=== PATIENT | female | born 1980 | race Caucasian/White ===

== ENCOUNTER 2017-01-04 21:56 | Emergency (ER) | payer OTHER ==
[~2017-01-04] VITALS: Ht 167.6 cm; Wt 86.0 kg
[2017-01-04 21:58] VITALS: Ht 167.6 cm; Wt 86.0 kg
[2017-01-04] MEDS ORDERED: ONDANSETRON (ODT) 4 MG TAB ODT STA (22:29)
[2017-01-04] MEDS ORDERED: ACETAMINOPHEN 325 MG TAB PO ONE (22:30)
[2017-01-04 23:34] LABS: ADD SCAN DIFF NO
[2017-01-04 23:36] LABS: BASOPHILS % 0.2 % (0.0-2.0); EOSINOPHILS # 0.1 10^3/ul (0.0-0.5); EOSINOPHILS % 1.2 % (0.0-7.0); HEMOGLOBIN 12.8 g/dl (12.0-16.0); LYMPHOCYTES % 24.2 % (15.0-51.0); MEAN CORPUSCULAR HEMOGLOBIN 29.8 pg (29.0-33.0); MEAN CORPUSCULAR HGB CONC 34.6 g/dl (32.0-37.0); MEAN CORPUSCULAR VOLUME 86.2 fl (82.0-101.0); MEAN PLATELET VOLUME 9.1 fl (7.4-10.4); MONOCYTE # 0.6 10^3/ul (0.3-0.9); MONOCYTES % 7.9 % (0.0-11.0); NEUTROPHIL # 5.3 10^3/ul (1.6-7.5); NEUTROPHILS % 65.9 % (39.0-77.0); PLATELET COUNT 369 10^3/UL (140-415); RED BLOOD COUNT 4.29 10^6/ul (4.20-5.40); RED CELL DISTRIBUTION WIDTH 12.6 % (11.5-14.5); WHITE BLOOD COUNT 8.1 10^3/ul (4.8-10.8)
[2017-01-05 00:01] LABS: ALBUMIN 3.9 g/dl (3.3-4.9); ALBUMIN/GLOBULIN RATIO 0.95; BILIRUBIN,INDIRECT 0.2 mg/dl (0-1.1); BILIRUBIN,TOTAL 0.2 mg/dl (0.2-1.3); CALCIUM 9.5 mg/dl (8.4-10.2); CREATININE 0.6 mg/dl (0.44-1.00); POTASSIUM 3.8 mmol/L (3.5-5.1)
[2017-01-05 00:01] LABS: ADD UMIC YES; URINE BILIRUBIN (Dip) NEGATIVE (NEGATIVE); URINE BLOOD (Dip) NEGATIVE (NEGATIVE); URINE COLOR LT. YELLOW (YELLOW); URINE GLUCOSE (Dip) NEGATIVE (NEGATIVE); URINE KETONES (Dip) NEGATIVE (NEGATIVE); URINE LEUKOCYTE ESTERASE (Dip) 1+ (NEGATIVE); URINE NITRITE (Dip) NEGATIVE (NEGATIVE); URINE TOTAL PROTEIN (Dip) NEGATIVE (NEGATIVE); URINE UROBILINOGEN (Dip) 0.2 E.U./dL (0.1-1.0)
--- NOTE | 2017-01-05 00:07 | RADRPT ---
PROCEDURE: US OB. CLINICAL INDICATION: TECHNIQUE: Transabdominal and transvaginal views of the pelvis are available for review. COMPARISON: There are no similar studies submitted for comparison. FINDINGS: The uterus measures 8.9 x 5.4 cm. There is a a single intrauterine gestation with a crown-rump rohan th measuring 8.8 millimeters, corresponding to a gestational age of 6 weeks 6 days. A yolk sac is no torsten. The heart rate is noted at 128 bpm. The right ovary measures 1.8 x 1.3 x 1.8 cm. The left ovary measures 2.2 x 2.6 x 2.1 cm. Doppler f low is noted to the bilateral ovaries. There is no free fluid. IMPRESSION: Single live intrauterine with an estimated gestational age of 6 weeks 6 days. Continued fo llow-up is recommended. Doppler flow to the bilateral ovaries. RPTAT: HIKT .Adis Rodriguez MD, MD Date Time Electronically viewed and signed by .Adis Rodriguez MD, on 01/05/2017 00:06 .T/
[2017-01-05] MEDS ORDERED: NITR-58 PO (00:30)
[2017-01-05] MEDS ORDERED: ACET325T33 PO (00:30)
--- NOTE | 2017-01-05 00:34 | ERD ---
ER Documentation Chief Complaint Date/Time DATE: 01/05/17 TIME: 00:34 Chief Complaint lower back pain radiating to front x 2 weeks HPI 36-year-old female presents with chief complaint of low back pain that radiates into her left leg and left-sided pelvic pain 2 weeks. Associated symptoms include dysuria. She states that LNMP was 11/09/16, states that menstrual cycles are usually regular. She is history of 2 C-sections in 2001 and 2002. She denies any nausea, vomiting, diarrhea, fever, vaginal discharge, and vaginal bleeding. She currently rates her pain a 7 out of 10 in severity, has not taken any medications for pain. No aggravating or alleviating factors. ROS All systems reviewed and are negative except as per history of present illness. Medications Home Meds Active Scripts Acetaminophen* (Tylenol*) 325 Mg Tablet, 2 TAB PO Q6 Y for PAIN AND OR ELEVATED TEMP, #20 TAB Prov:Nancy Mccall PA-C 01/05/17 Nitrofurantoin Monohyd Macrocr* (Macrobid*) 100 Mg Capsr, 100 MG PO BID for 5 Days, #10 CAP Prov:Nanyc Mccall PA-C 01/05/17 Reported Medications [None] No Conflict Check 08/28/14 Allergies Allergies: Coded Allergies: No Known Allergy (Unverified , 01/04/17) PMhx/Soc History of Surgery: Yes (C SECTIONC) Anesthesia Reaction: No Hx Neurological Disorder: No Hx Respiratory Disorders: No Hx Cardiac Disorders: Yes (htn) Hx Psychiatric Problems: No Hx Miscellaneous Medical Probl: Yes (diabetes, high cholesterol) Hx Alcohol Use: No Hx Substance Use: No Hx Tobacco Use: No Physical Exam Vitals Vital Signs Date Time Temp Pulse Resp B/P Pulse Ox O2 Delivery O2 Flow Rate FiO2 01/05/17 00:53 98.3 62 20 145/62 99 01/04/17 21:58 97.8 83 20 147/62 99 Physical Exam GENERAL: Non-toxic. No apparent signs of distress. LUNGS: Clear to auscultation. No accessory muscle use. No wheezing, no crackles. No signs or symptoms of respiratory distress. HEART: Regular rate and rhythm. No murmurs, clicks, rubs or gallops. ABDOMEN: Soft, nontender and nondistended. Bowel sounds positive. No rebound or guarding. No gross peritoneal signs. No Martinez or McBurney point tenderness. No gross masses. BACK: No midline tenderness, no costovertebral tenderness. EXTREMITIES: No peripheral cyanosis or edema. No focal pain or notable trauma. Full range of motion. Good capillary refill. NEURO: The patient moves all 4 extremities with 5/5 strength. Cranial nerves are grossly intact. Normal mental status for age. Good muscle tone. Positive straight leg raise on left side. SKIN: There is no apparent rash, petechiae, erythema or swelling. Good skin turgor. Result Diagram: 01/04/17232001/04/172320 Results 24 hrs Laboratory Tests Test 01/04/17 23:00 01/04/17 23:21 Urine Color LT. YELLOW Urine Clarity CLEAR Urine pH 7.0 Urine Specific [place] 1.020 Urine Ketones NEGATIVE Urine Nitrite NEGATIVE Urine Bilirubin NEGATIVE Urine Urobilinogen 0.2 E.U./dL Urine Leukocyte Esterase 1+ Urine Microscopic RBC NONE SEEN/HPF Urine Microscopic WBC 10-25/HPF Urine Squamous Epithelial Cells MODERATE Urine Bacteria FEW Urine Hemoglobin NEGATIVE Urine Glucose NEGATIVE% Urine Total Protein NEGATIVE White Blood Count 8.110^3/ul Red Blood Count 4.2910^6/ul Hemoglobin 12.8g/dl Hematocrit 37.0% Mean Corpuscular Volume 86.2fl Mean Corpuscular Hemoglobin 29.8pg Mean Corpuscular Hemoglobin Concent 34.6g/dl Red Cell Distribution Width 12.6% Platelet Count 62738^3/UL Mean Platelet Volume 9.1fl Neutrophils % 65.9% Lymphocytes % 24.2% Monocytes % 7.9% Eosinophils % 1.2% Basophils % 0.2% Nucleated Red Blood Cells % 0.0/100WBC Neutrophils # 5.310^3/ul Lymphocytes # 2.010^3/ul Monocytes # 0.610^3/ul Eosinophils # 0.110^3/ul Basophils # 0.010^3/ul Nucleated Red Blood Cells # 0.010^3/ul Sodium Level 135mmol/L Potassium Level 3.8mmol/L Chloride Level 103mmol/L Carbon Dioxide Level 26mmol/L Anion Gap 10 Blood Urea Nitrogen 16mg/dl Creatinine 0.60mg/dl Glucose Level 133mg/dl Calcium Level 9.5mg/dl Total Bilirubin 0.2mg/dl Direct Bilirubin 0.00mg/dl Indirect Bilirubin 0.2mg/dl Aspartate Amino Transf (AST/SGOT) 13IU/L Alanine Aminotransferase (ALT/SGPT) 26IU/L Alkaline Phosphatase 107IU/L Total Protein 8.0g/dl Albumin 3.9g/dl Globulin 4.10g/dl Albumin/Globulin Ratio 0.95 Current Medications Medications (Trade) Dose Ordered Sig/Mimi Route PRN Reason Start Time Stop Time Status Last Admin Dose Admin Acetaminophen (Tylenol Tab) 650 mg ONCE ONCE PO 01/04/17 22:30 01/04/17 22:31 DC 01/04/17 23:01 Ondansetron HCl (Zofran Odt) 4 mg ONCE STAT ODT 01/04/17 22:29 01/04/17 22:31 DC 01/04/17 23:01 [place] [id number] Radiology Main Line: [phone] DIAGNOSTIC IMAGING REPORT Patient: FLEX LAWRENCE : 1980 Age: 36 Sex: F MR #: [id number] DOS: 01/04/17 2224 Ordering MD: Nancy Mccall PA-C Location: [facility] Room/Bed: PROCEDURE: US OB. CLINICAL INDICATION: TECHNIQUE: Transabdominal and transvaginal views of the pelvis are available for review. COMPARISON: There are no similar studies submitted for comparison. FINDINGS: The uterus measures 8.9 x 5.4 cm. There is a a single intrauterine gestation with a crown-rump length measuring 8.8 millimeters, corresponding to a gestational age of 6 weeks 6 days. A yolk sac is noted. The heart rate is noted at 128 bpm. The right ovary measures 1.8 x 1.3 x 1.8 cm. The left ovary measures 2.2 x 2.6 x 2.1 cm. Doppler flow is noted to the bilateral ovaries. There is no free fluid. IMPRESSION: Single live intrauterine with an estimated gestational age of 6 weeks 6 days. Continued follow-up is recommended. Doppler flow to the bilateral ovaries. RPTAT: HIKT .Adis Rodriguez MD, Date Time Electronically viewed and signed by .Adis Rodriguez MD, on 01/05/2017 00:06 .T/ CC: Nancy Mccall PA-C Procedures/MDM Patient presents with complaint of back pain that radiates into her left leg and left adnexal pain 2 weeks. While taking her history patient notes that LNMP was 11/09/16. Patient states that normally her menstrual cycles are regular, states that she could be . Basic labs, pelvic ultrasound and urine were ordered awaiting results prior to further management. Patient given Tylenol for pain control in the event that she may be . CBC: No leukocytosis, no anemia, no left shift. CMP: No severe electrolyte imbalance, normal kidney function, normal liver function POC : Positive UA: 1+ leukocyte Estrace, no nitrite, 10-25 WBCs. Will treat for UTI since patient is Pelvic ultrasound (interpretation by radiologist): IMPRESSION: Single live intrauterine with an estimated gestational age of 6 weeks 6 days. Continued follow-up is recommended. Doppler flow to the bilateral ovaries. Explained the results of the workup to the patient, and is reassuring that she has no leukocytosis or left shift. In addition the patient had no CVA tenderness on exam and she is afebrile, UA reveals only 1+ leukocyte esterase with 10-25 WBCs and no nitrites, making pyelonephritis unlikely. Back pain radiates into left leg and she has a positive straight leg raise on the left side. I expect the patient that this may be indicated of sciatica. Patient did not know that she was , explained that she is 6 weeks shows intrauterine with heart tones, suggested follow-up with OB /[facility] COLLATOR for care. Suggested use of vitamins. Ovarian torsion is ruled out with Doppler flow to bilateral ovaries seen on ultrasound, patient' s left adnexal pain is likely related to changes. I suggested use of Tylenol for pain. I also wrote a prescription for Macrobid, as patient has 1+ leukocyte Estrace and her UA and reports dysuria. Patient given instructions on and sciatica. Is stable for discharge and outpatient management. Advised to follow-up with PCP or [facility] in 1-2 days. Departure Diagnosis: Primary Impression: Back pain Back pain location: low back pain Chronicity: acute Back pain laterality: left Sciatica presence: with sciatica Sciatica laterality: sciatica of left side Qualified Code: M54.42 - Acute left-sided low back pain with left-sided sciatica Additional Impression: Weeks of gestation: less than 8 weeks Qualified Code: Z3A.01 - Less than 8 weeks gestation of Condition: Good Patient Instructions: , New Dx, Back Pain W/ Sciatica Additional Instructions: Call your primary care doctor TOMORROW for an appointment during the next 1-2 days.See the doctor sooner or return here if your condition worsens before your appointment time. Nancy Mccall PA-C January 05, 2017 00:34
[2017-01-05 00:38] LABS: BACTERIA,URINE FEW; SQUAMOUS EPITHELIAL CELL,UR MODERATE; URINE RBCS NONE SEEN /HPF (0)
[2017-01-05 00:53] VITALS: BP 145/62; PULSE 62; RESP 20; TEMP 98.3
== END 2017-01-05 00:59 | disposition home or self-care (01) ==
LOC: FTE 21:56
DX: M54.42 Lumbago with sciatica, left side (principal); I10 Essential (primary) hypertension; E11.9 Type 2 diabetes mellitus without complications; R10.2 Pelvic and perineal pain; Z33.1 Pregnant state, incidental
CPT/HCPCS: 36415; 76830; 76856; 80053; 81001; 85025; Z7502; Z7610; 81003

== ENCOUNTER 2017-02-04 13:33 | Emergency (ER) | payer OTHER ==
[~2017-02-04] VITALS: Ht 157.5 cm; Wt 83.0 kg
[~2017-02-04 13:33] MED LIST: ACET325T33 PO; NITR-58 PO
[2017-02-04 13:41] VITALS: Ht 157.5 cm; Wt 83.0 kg
[2017-02-04 15:09] LABS: URINE BLOOD (Dip) POC Negative (NEGATIVE)
[2017-02-04] MEDS ORDERED: AZITHROMYCIN 250 MG TAB PO ONE (16:00)
[2017-02-04] MEDS ORDERED: CEFTRIAXONE 500 MG INJ IM ONE (16:00)
[2017-02-04] MEDS ORDERED: IBUPROFEN 600 MG TAB PO ONE (16:00)
--- NOTE | 2017-02-04 16:40 | RADRPT ---
PROCEDURE: US Pelvis CLINICAL INDICATION: PELVIC PAIN TECHNIQUE: Multiple sonographic images of the pelvis were obtained utilizing a transabdominal and endovaginal technique. The images were reviewed on a PACS workstation. COMPARISON: Pelvic ultrasound from 01/04/2017 LMP: 11/12/2016 FINDINGS: The uterus is retroverted and measures 8.2 x 4.4 x 4.9 cm. The endometrial echo complex measures 9 mm in thickness. There is a 1.9 cm posterior subserosal fibroid at the level of the mid to lower body. The right ovary measures 3.6 x 2.5 x 2.3 cm. The left ovary measures 2.6 x 1.5 x 1.6 cm. There is no rmal vascular flow in both ovaries. No significant ovarian lesions are seen. No significant pelvic free fluid is identified. IMPRESSION: 1.9 cm uterine fibroid. The intrauterine seen on the prior ultrasound study from 01/04/2017 is no longer visualize d. RPTAT: EE Physician Angelina Date Time Electronically viewed and signed by Physician Angelina on 02/04/2017 16:40 /
[2017-02-04] MEDS ORDERED: IBUP-1542 PO (16:51)
[2017-02-04] MEDS ORDERED: ACET1TAB40 PO (16:51)
--- NOTE | 2017-02-04 16:56 | ERD ---
ER Documentation Chief Complaint Date/Time DATE: 02/04/17 TIME: 16:53 Chief Complaint back pain rad abd HPI This 36-year-old female presents with low back pain and pelvic pain intermittently for the last week. History is significant for a and a spontaneous approximately 1 month ago. Patient has no history of fevers, urinary complaints, or trauma. She denies any upper abdominal pain or localization of abdominal pain to the right or the left. It appears to be nonspecific dull pelvic pain. ROS All systems reviewed and are negative except as per history of present illness. Medications Home Meds Active Scripts Acetaminophen with Codeine (Acetaminophen-Cod #3 Tablet) 1 Each Tablet, 1 TAB PO Q6H Y for PAIN, #10 TAB Prov:ASHER HERNÁNDEZ MD 02/04/17 Ibuprofen* (Motrin*) 600 Mg Tab, 600 MG PO Q6, #20 TAB Prov:ASHER HERNÁNDEZ MD 02/04/17 Acetaminophen* (Tylenol*) 325 Mg Tablet, 2 TAB PO Q6 Y for PAIN AND OR ELEVATED TEMP, #20 TAB Prov:Nancy Mccall PA-C 01/05/17 Nitrofurantoin Monohyd Macrocr* (Macrobid*) 100 Mg Capsr, 100 MG PO BID for 5 Days, #10 CAP Prov:Nancy Mccall PA-C 01/05/17 Reported Medications [None] No Conflict Check 08/28/14 Allergies Allergies: Coded Allergies: No Known Allergy (Unverified , 02/04/17) PMhx/Soc History of Surgery: Yes (C SECTIONC) Anesthesia Reaction: No Hx Neurological Disorder: No Hx Respiratory Disorders: No Hx Cardiac Disorders: Yes (htn) Hx Psychiatric Problems: No Hx Miscellaneous Medical Probl: Yes (diabetes, high cholesterol) Hx Alcohol Use: No Hx Substance Use: No Hx Tobacco Use: No Smoking Status: Never smoker Physical Exam Vitals Vital Signs Date Time Temp Pulse Resp B/P Pulse Ox O2 Delivery O2 Flow Rate FiO2 02/04/17 13:41 97.9 72 20 128/86 99 Physical Exam Const: [] Alert, not ill-appearing. Head: Atraumatic Eyes: Normal Conjunctiva ENT: Normal External Ears, Nose and Mouth. Neck: Full range of motion..~ No meningismus. Resp: Clear to auscultation bilaterally Cardio: Regular rate and rhythm, no murmurs Abd: Soft, minimal suprapubic tenderness. No tenderness at McBurney's point no Martinez sign., non distended. Normal bowel sounds Skin: No petechiae or rashes Back: No midline or flank tenderness Ext: No cyanosis, or edema Neur: Awake and alert Psych: Normal Mood and Affect Pelvic examination with the assistance of a dewaxer shows some mild cervical motion tenderness. No adnexal tenderness or masses appreciated. Urine is negative for infection and hCG is negative. Pelvic ultrasound shows a small fibroid with no evidence of intrauterine , adnexal masses or acute findings. Patient presents with low-grade nonspecific low back pain and pelvic pain of uncertain etiology. There are signs of possible cervicitis and she will be treated with Rocephin 500 mg IM and Zithromax 1 g p.o. Urine was sent for gonorrhea chlamydia. Signs and symptoms do not suggest appendicitis, septic , acute abdomen, obstruction. She will be given ibuprofen and Tylenol 3 and further observation instruction to follow-up with primary care doctor. The patient was stable with no new complaints during the ER course. Clinically, there is no current evidence to suggest meningitis, sepsis, acute abdomen, pneumonia, acute coronary syndrome, pulmonary embolism, or any other emergent condition appearing to require further evaluation or hospitalization. The patient should certainly return for any new or worsening symptoms per the aftercare instructions. They should otherwise follow-up with her primary care doctor for reevaluation this week. Results 24 hrs Laboratory Tests Test 02/04/17 15:12 Bedside Urine pH (LAB) 7.5 Bedside Urine Protein (LAB) Trace Bedside Urine Glucose (UA) Negative Bedside Urine Ketones (LAB) Negative Bedside Urine Blood Negative Bedside Urine Nitrite (LAB) Negative Bedside Urine Leukocyte Esterase (L Negative Current Medications Medications (Trade) Dose Ordered Sig/Mimi Route PRN Reason Start Time Stop Time Status Last Admin Dose Admin Ceftriaxone Sodium (Rocephin) 500 mg ONCE ONCE IM 02/04/17 16:00 02/04/17 16:16 DC 02/04/17 16:33 Azithromycin (Zithromax) 1,000 mg ONCE ONCE PO 02/04/17 16:00 02/04/17 16:16 DC 02/04/17 16:33 Ibuprofen (Motrin) 600 mg ONCE ONCE PO 02/04/17 16:00 02/04/17 16:16 DC 02/04/17 16:33 Departure Diagnosis: Primary Impression: Pelvic pain Additional Impression: Back pain Back pain location: low back pain Chronicity: acute Back pain laterality: unspecified Sciatica presence: without sciatica Qualified Code: M54.5 - Acute low back pain without sciatica, unspecified back pain laterality Condition: Stable Patient Instructions: Back Pain (Acute Or Chronic), Pelvic Pain, Unknown Cause [facility] Usted se norris hecho un examen mdico de control que le indica que no est en harley condicin que requiera tratamiento urgente en el Departamento de Emergencia. Un estudio ms profundo y el tratamiento de brower condicin pueden esperar sin ningn riesgo hasta que usted sea atendida/o en el consultorio de brower mdico o harley cl haim. Es responsabilidad suya arreglar harley gonzalez para el seguimiento del katherin. MANEJO DE CONDICIONES NO URGENTES EN EL FUTURO 1) Si usted tiene un mdico de atencin primaria: Usted debera llamar a brower mdico de atencin primaria antes de venir al departamento de emergencia. Despus de las horas de consultorio, brower doctor o brower asociado/a est disponible por telfono. El mdico o enfermero de christina en el servicio telefnico puede asesorarle por antonella medio para atender el problema, o katherin contrario se puede programar harley gonzalez. 2) Si usted no tiene un mdico de atencin primaria: Llame al mdico o clnica de referencia que aparece abajo tonio las horas de consultorio para hacer harley gonzalez para que le vean. CLINICAS: [facility] [phone] [facility] [phone] [facility] [phone] [facility] [phone] [place] [phone] [facility]. [phone] Additional Instructions: Examines normal hoy. Cheque otro vez con brower doctor primario en el proximo bell or regresa para mas o nueva simptomas. ASHER HERNÁNDEZ MD Feb 04, 2017 16:55
[2017-02-04 17:01] VITALS: BP 126/78; PULSE 78; RESP 20; TEMP 98.1
== END 2017-02-04 17:02 | disposition home or self-care (01) ==
LOC: FTE 13:33
DX: R10.2 Pelvic and perineal pain (principal); I10 Essential (primary) hypertension; E11.9 Type 2 diabetes mellitus without complications
CPT/HCPCS: 76830; 76856; 81003; 87591; 96372; J0696; Z7502; Z7610

== ENCOUNTER 2017-06-24 07:40 | Emergency (ER) | payer OTHER ==
[~2017-06-24] VITALS: Ht 167.6 cm; Wt 90.5 kg
[~2017-06-24 07:40] MED LIST changes: +ACET1TAB40 PO; +IBUP-1542 PO
[2017-06-24 07:44] VITALS: Ht 167.6 cm; Wt 90.5 kg
--- NOTE | 2017-06-24 08:57 | ERD ---
ER Documentation Chief Complaint Chief Complaint PAINFUL URINATION WITH BURNING, BLOOD SEEN IN URINE, FLANK/BACK PAIN HPI This is a 36-year-old female resenting to emergency department for dysuria, hematuria, urinary frequency and urgency 3 days. Patient is also having left- sided flank pain. Patient rates pain 10/10 and reports pain is constant. States pain feels like pressure. No difficulty urinating. No urinary incontinence. No vaginal bleeding or vaginal discharge. Patient states she has had UTIs in the past and states this feels like a urinary tract infection. Patient has had nephrolithiasis with last occurrence in 1997. ROS All systems reviewed and are negative except as per history of present illness. Medications Home Meds Active Scripts Phenazopyridine Hcl* (Pyridium*) 100 Mg Tab, 100 MG PO TID for 2 Days, TAB Prov:CRYSTAL URENA NP 06/24/17 Nitrofurantoin Monohyd Macrocr* (Macrobid*) 100 Mg Capsr, 100 MG PO BID for 5 Days, CAP Prov:CRYSTAL URENA NP 06/24/17 Acetaminophen with Codeine (Acetaminophen-Cod #3 Tablet) 1 Each Tablet, 1 TAB PO Q6H Y for PAIN, #10 TAB Prov:ASHER HERNÁNDEZ MD 02/04/17 Ibuprofen* (Motrin*) 600 Mg Tab, 600 MG PO Q6, #20 TAB Prov:ASHER HERNÁNDEZ MD 02/04/17 Acetaminophen* (Tylenol*) 325 Mg Tablet, 2 TAB PO Q6 Y for PAIN AND OR ELEVATED TEMP, #20 TAB Prov:Nancy Mccall PA-C 01/05/17 Nitrofurantoin Monohyd Macrocr* (Macrobid*) 100 Mg Capsr, 100 MG PO BID for 5 Days, #10 CAP Prov:Nancy Mccall PA-C 01/05/17 Reported Medications [None] No Conflict Check 08/28/14 Allergies Allergies: Coded Allergies: No Known Allergy (Unverified , 02/04/17) PMhx/Soc History of Surgery: Yes (C SECTIONC) Anesthesia Reaction: No Hx Neurological Disorder: No Hx Respiratory Disorders: No Hx Cardiac Disorders: Yes (htn) Hx Psychiatric Problems: No Hx Miscellaneous Medical Probl: Yes (diabetes, high cholesterol) Hx Alcohol Use: No Hx Substance Use: No Hx Tobacco Use: No Smoking Status: Never smoker Physical Exam Vitals Vital Signs Date Time Temp Pulse Resp B/P Pulse Ox O2 Delivery O2 Flow Rate FiO2 06/24/17 07:44 97.7 78 16 132/83 97 Physical Exam Const: No acute distress, alert Head: Atraumatic Eyes: Normal Conjunctiva ENT: Normal External Ears, Nose and Mouth. Neck: Full range of motion..~ No meningismus. Resp: Clear to auscultation bilaterally. Cardio: Regular rate and rhythm, no murmurs Abd: Soft, non tender, non distended. Normal bowel sounds Skin: No rashes Back: No midline or flank tenderness. No CVA tenderness Ext: No cyanosis, or edema Neur: Awake and alert Psych: Normal Mood and Affect Results 24 hrs Laboratory Tests Test 06/24/17 08:15 Urine Color YELLOW Urine Clarity CLOUDY Urine pH 6.0 Urine Specific [place] 1.002 Urine Ketones NEGATIVEmg/dL Urine Nitrite NEGATIVEmg/dL Urine Bilirubin NEGATIVEmg/dL Urine Urobilinogen NEGATIVEmg/dL Urine Leukocyte Esterase 2+Therese/ul Urine Microscopic RBC 2/HPF Urine Microscopic WBC 24/HPF Urine Squamous Epithelial Cells FEW/HPF Urine Bacteria FEW/HPF Urine Hemoglobin 3+mg/dL Urine Glucose NEGATIVEmg/dL Urine Total Protein NEGATIVEmg/dl Procedures/MDM MDM: This is a 36-year-old female presenting to the emergency department for dysuria, hematuria, urinary frequency and urgency 3 days. Patient is also having left-sided flank pain and reports pain is constant and pressure-like. Patient is afebrile vital signs are stable. No CVA tenderness on physical exam. Patient has suprapubic tenderness. UA ordered. UA shows 24 WBCs, 2 RBCs , 2+ leukocyte esterase, 3+ hemoglobin, and few bacteria. Urine is negative. Urine culture results are pending. Differential diagnosis includes but not limited to vaginitis, urethritis, pelvic inflammatory disease, nephrolithiasis, painful bladder syndrome, gonorrhea, chlamydia, herpes simplex virus, genital warts or trichomoniasis. Patient likely has acute UTI. Low suspicion for pyelonephritis due to patient being afebrile without chills. No CVA tenderness. Patient denies nausea or vomiting. Patient is appropriate for outpatient management and will be given prescription for Macrobid and Pyridium. Instructed patient to increase fluid intake and rest as needed. Instructed patient to follow-up with primary care provider in the next 2-3 days for reassessment. Return to ED for any high fever, chest pain , difficulty breathing, shortness breath, wheezing, vomiting, diarrhea, abdominal pain or any new or worsening symptoms. Patient verbalizes understanding. All questions answered at discharge. Disclaimer: Inadvertent spelling and grammatical errors are likely due to EHR/ dictation software use and do not reflect on the overall quality of patient care. Also, please note that the electronic time recorded on this note does not necessarily reflect the actual time of the patient encounter. Departure Diagnosis: Primary Impression: UTI (urinary tract infection) Urinary tract infection type: acute cystitis Hematuria presence: with hematuria Qualified Code: N30.01 - Acute cystitis with hematuria Condition: CRYSTAL Bright NP Jun 24, 2017 08:56
[2017-06-24 09:17] LABS: ADD UMIC YES; UR ASCORBIC ACID NEGATIVE (NEGATIVE); UR BACTERIA FEW /HPF (NONE SEEN); UR BILIRUBIN (Dip) NEGATIVE (NEGATIVE); UR BLOOD (Dip) 3+ mg/dL (NEGATIVE); UR CLARITY CLOUDY (CLEAR); UR COLOR YELLOW (YELLOW); UR GLUCOSE (Dip) NEGATIVE (NEGATIVE); UR KETONES (Dip) NEGATIVE (NEGATIVE); UR LEUKOCYTE ESTERASE (Dip) 2+ Leu/ul (NEGATIVE); UR NITRITE (Dip) NEGATIVE (NEGATIVE); UR RBC 2 /HPF (0-5); UR SPECIFIC GRAVITY (Dip) 1.002 (1.003-1.030); UR SQUAMOUS EPITHELIAL CELL FEW /HPF (FEW); UR TOTAL PROTEIN (Dip) NEGATIVE (NEGATIVE); UR UROBILINOGEN (Dip) NEGATIVE (NEGATIVE)
[2017-06-24] MEDS ORDERED: NITR-58 PO (09:26)
[2017-06-24] MEDS ORDERED: PHEN-537 PO (09:26)
== END 2017-06-24 09:37 | disposition home or self-care (01) ==
LOC: FTE 07:40
DX: N30.01 Acute cystitis with hematuria (principal); E11.9 Type 2 diabetes mellitus without complications; I10 Essential (primary) hypertension
CPT/HCPCS: 81001; 87086; Z7502; 99283

== ENCOUNTER 2017-08-24 15:04 | Emergency (ER) | payer OTHER ==
[~2017-08-24] VITALS: Ht 165.1 cm; Wt 91.4 kg
[~2017-08-24 15:04] MED LIST changes: +PHEN-537 PO
[2017-08-24 15:05] VITALS: Ht 165.1 cm; Wt 91.4 kg
--- NOTE | 2017-08-24 17:31 | ERD ---
ER Documentation Chief Complaint Chief Complaint BACK PAIN , FEVER , CHIILLS , COUGH X 1 DAY HPI 37-year-old female, previously healthy, presents to the emergency department concerned about a possible urinary tract infection. The patient is states that she has had acute onset of lower back pain associated with subjective fever, chills, arthralgia, general malaise and cough for the last 48 hours. No treatment attempted at this time. The patient denies abdominal pain, nausea, vomiting, no shortness of breath, no weakness, numbness, tingling. ROS A 12-point review of systems was performed and negative other than presented in the history of present illness. SYSTEMIC symptoms: Subjective fever, chills, no night sweats, no weight loss EYE symptoms: No blurred vision, no eye discharge OTOLARYNGEAL symptoms: No hearing loss. No ear pain, no sore throat CARDIOVASCULAR symptoms: No chest pain or discomfort, no palpitations. PULMONARY symptoms: No dyspnea, +cough, no wheezing. GASTROINTESTINAL symptoms: No abdominal pain, no nausea, no vomiting, no diarrhea MUSCULOSKELETAL symptoms: Per HPI NEUROLOGY symptoms: No confusion, no syncope, no numbness or tingling. SKIN: No rashes Medications Home Meds Active Scripts Hydrocodone/Acetaminophen (Babcock 5-325 Tablet) 1 Each Tablet, 1 TAB PO Q8 Y for PAIN, #10 TAB Prov:BUNNY MONROY MD 08/24/17 Ibuprofen* (Motrin*) 600 Mg Tab, 600 MG PO Q8 Y for PAIN AND OR ELEVATED TEMP, # 30 TAB Prov:BUNNY MONROY MD 08/24/17 Phenazopyridine Hcl* (Pyridium*) 100 Mg Tab, 100 MG PO TID for 2 Days, TAB Prov:CRYSTAL URENA NP 06/24/17 Nitrofurantoin Monohyd Macrocr* (Macrobid*) 100 Mg Capsr, 100 MG PO BID for 5 Days, CAP Prov:CRYSTAL URENA NP 06/24/17 Acetaminophen with Codeine (Acetaminophen-Cod #3 Tablet) 1 Each Tablet, 1 TAB PO Q6H Y for PAIN, #10 TAB Prov:ASHER HERNÁNDEZ MD 02/04/17 Ibuprofen* (Motrin*) 600 Mg Tab, 600 MG PO Q6, #20 TAB Prov:ASHER HERNÁNDEZ MD 02/04/17 Acetaminophen* (Tylenol*) 325 Mg Tablet, 2 TAB PO Q6 Y for PAIN AND OR ELEVATED TEMP, #20 TAB Prov:Nancy Mccall PA-C 01/05/17 Nitrofurantoin Monohyd Macrocr* (Macrobid*) 100 Mg Capsr, 100 MG PO BID for 5 Days, #10 CAP Prov:Nancy Mccall PA-C 01/05/17 Reported Medications [None] No Conflict Check 08/28/14 Allergies Allergies: Coded Allergies: No Known Allergy (Unverified , 02/04/17) PMhx/Soc History of Surgery: Yes (C SECTION X2, MASS REMOVED FROM GROIN) Anesthesia Reaction: No Hx Neurological Disorder: No Hx Respiratory Disorders: No Hx Cardiac Disorders: Yes (htn) Hx Psychiatric Problems: No Hx Miscellaneous Medical Probl: Yes (diabetes, high cholesterol) Hx Alcohol Use: No Hx Substance Use: No Hx Tobacco Use: No Smoking Status: Never smoker Physical Exam Vitals Vital Signs Date Time Temp Pulse Resp B/P Pulse Ox O2 Delivery O2 Flow Rate FiO2 08/24/17 19:03 98.4 85 16 119/69 99 Room Air 08/24/17 15:05 98.4 95 18 133/81 99 Physical Exam Patient is in no acute distress, vital signs stable. Alert and fully oriented. EYES: PERRLA, EOMI, Sclera and conjunctiva appear normal. EARS: Canals clear, tympanic membranes WNL THROAT: Normal oropharynx. NECK: Supple, No lymphadenopathy. Full ROM without pain or tenderness. HEART: RRR, no rubs, murmurs, clicks or gallops. LUNGS: Clear to auscultation. ABDOMEN: Soft, non-tender without masses or hepatosplenomegaly. EXTREMITIES: No edema bilaterally. BACK: Normal inspection, mild bilateral tender muscle spasm, full ROM, no deformity, no vertebral tenderness NEURO: Cranial nerves grossly intact, no motor or sensory deficit Results 24 hrs Laboratory Tests Test 08/24/17 17:45 Bedside Urine pH (LAB) 5.5 Bedside Urine Protein (LAB) Negative Bedside Urine Glucose (UA) Negative Bedside Urine Ketones (LAB) Negative Bedside Urine Blood Negative Bedside Urine Nitrite (LAB) Negative Bedside Urine Leukocyte Esterase (L Negative Current Medications Medications (Trade) Dose Ordered Sig/Mimi Route PRN Reason Start Time Stop Time Status Last Admin Dose Admin Ketorolac Tromethamine (Toradol) 30 mg ONCE STAT IM 08/24/17 18:19 08/24/17 18:20 DC 08/24/17 18:45 Procedures/MDM 37y/o female patient previously healthy, presents to the ED c/o fever, back pain and cough for 2 days. Vital signs stable, Physical exam unremarkable. Differential diagnosis include but not limited to: Acute musculoskeletal injury , herniated disc, urolithiasis, UTI, arthritis, degenerative disc disease. Low suspicion for vertebral fracture, cauda equina syndrome, psoas abscess. Pertinent Data: UA: No signs of infection Physical examination and clinical presentation consistent most likely with acute lumbar strain. During the ED course the patient remained stable, no new complaints. The patient received treatment with Toradol presenting overall improvement of the symptoms. Results and clinical impression discussed with patient who agrees with management. The patient is stable to be treated outpatient and will be discharged home with a Rx for ibuprofen and Babcock, some side effects of prescribed medications (headache, rash, nausea, vomiting, diarrhea, drowsiness, habituation, bleeding, hypertension, interactions with other medications) were reviewed. The patient was instructed to follow up with the primary care provider in the next 48h. If symptoms persist, worsen or new symptoms develop, then patient should return to the ED immediately. Instructions explained and given directly by me to the patient in [place] with acknowledgment and demonstrated understanding. Disclaimer: Inadvertent spelling and grammatical errors are likely due to EHR/ dictation software use and do not reflect on the overall quality of patient care. Also, please note that the electronic time recorded on this note does not necessarily reflect the actual time of the patient encounter. Departure Diagnosis: Primary Impression: Acute lumbar back pain Condition: Stable Additional Instructions: Muchas bertha por [facility] para brower servicio. Esperamos que en brower visita a la lucia de emergencia brower problema medico haya sido solucionado y que se sienta mucho mejor. Para estar seguros que brower mejoria sigue en proceso, le pedimos el favor de hacer harley gonzalez de seguimiento medico con brower doctor primario en los proximos 2-4 bell. Lleve con usted estos documentos y las medicinas recetadas. Si gwendolyn sintomas empeoran y no puede jeronimo a brower doctor, por favor regrese a lucia de emergencia. En katherin que usted no tenga un mdico de atencin primaria: Llame al mdico o clnica comunitaria de referencia que aparece abajo tonio las horas de consultorio para hacer harley gonzalez para que le vean. CLINICAS: [facility] [id number] [facility] [id number] [facility] [phone] [facility] [phone] [id number] [facility] [phone] [address] [facility]. [phone] BUNNY MAYORGA MD Aug 24, 2017 17:31
[2017-08-24 17:43] LABS: URINE BLOOD (Dip) POC Negative (NEGATIVE)
[2017-08-24] MEDS ORDERED: KETOROLAC 30 MG INJ IM STA (18:19)
[2017-08-24] MEDS ORDERED: HYDR-906 PO (18:51)
[2017-08-24] MEDS ORDERED: IBUP-1542 PO (18:51)
[2017-08-24 19:03] VITALS: BP 119/69; PULSE 85; RESP 16; TEMP 98.4
== END 2017-08-24 19:06 | disposition home or self-care (01) ==
LOC: FTE 15:04
DX: M54.5 Low back pain (principal); I10 Essential (primary) hypertension; E11.9 Type 2 diabetes mellitus without complications
CPT/HCPCS: 81003; 96372; J1885; Z7502

== ENCOUNTER 2017-10-26 01:39 | Emergency (ER) | END 2017-10-26 06:10 | disposition home or self-care (01) ==